=== PATIENT | female | born 1970 | race Caucasian/White ===

== ENCOUNTER 2020-10-10 10:01 | Emergency (ER) | payer OTHER ==
[2020-10-10] MEDS ORDERED: PROTONIX 40 MG IV IV ONE ×2 (10:25→10:36)
[2020-10-10] MEDS ORDERED: GI COCKTAIL 45 ML (Maalox/Lidocaine) PO ONE (10:25)
[2020-10-10] MEDS ORDERED: MAALOX ES 30 ML UNIT DOSE ONE (10:37)
[2020-10-10] MEDS ORDERED: XYLOCAINE HCl Viscous ONE (10:37)
[2020-10-10 10:42] LABS: Absolute Neutrophil Ct (ANC) 5.08 (1.4-6.9); BASOPHIL % 0.2 % (0.0-0.4); Basophil (Absolute #) 0.02 (0-0.4); Eosinophil (Absolute #) 0.09 (0-0.5); Hematocrit 41.9 % (35-47); Hemoglobin 13.7 gm/dl (12.0-16.0); Lymphocyte (Absolute #) 3.13 (1.0-4.6); Lymphocytes % 35.4 % (24.0-44.0); Mean Cell Volume 94.4 fl (78-100); Mean Corpuscular Hemoglobin 30.9 pg (26-32); Mean Corpuscular Hgb Concent. 32.7 g/dl (32-36); Mean Platelet Volume 10.3 fl (7.5-11.0); Monocyte (Absolute #) 0.51 (0.0-1.3); Monocytes % 5.8 % (0.0-12.0); Neutrophil % 57.6 % (36.0-66.0); Platelet Count 312 K/mm3 (150-450); Red Blood Count 4.44 M/mm3 (4.1-5.4); Red Cell Distribution Width 12.4 % (11.5-14.0); White Blood Count 8.8 K/mm3 (4.0-10.5)
[2020-10-10 10:52] LABS: Appearance CLEAR (CLEAR); Bilirubin NEGATIVE (NEGATIVE); Blood NEGATIVE Ery/ul (0-5); Glucose NEGATIVE (NEGATIVE); Hyaline Casts 0-2 /LPF (0-2); Ketones NEGATIVE (NEGATIVE); Leukocyte Esterase NEGATIVE (NEGATIVE); Nitrite NEGATIVE (NEGATIVE); Protein,Urine Dip NEGATIVE (Negative); Specific Gravity 1.005 (1.005-1.025); Urobilinogen NEGATIVE mg/dL (0-1)
--- NOTE | 2020-10-10 10:52 | XRAY ---
Indication: Left abdomen pain 2 months. Comparison: None 2 view abdomen nonacute and nonobstructed with mild diffuse scattered colonic fecal debris, tiny splenic calcified granulomas, and cholecystectomy clips. Solid organs and osseous structures unremarkable. Single PA chest demonstrates normal heart, lungs, and bony thorax with incidental calcified granulomas and right axilla florin dissection. Impression: Mild diffuse fecal stasis. Nonacute one view chest with chronic features.
[2020-10-10 10:55] LABS: RBC NONE SEEN /HPF (0-2); WBC NONE SEEN /HPF (0-5)
[2020-10-10 10:58] LABS: ALBUMIN 4.8 g/dL (3.5-5.0); ALKALINE PHOSPHATASE 75 U/L (38-126); AMYLASE 74 U/L (30-110); ANION GAP 15.4 MEQ/L (5-15); BLOOD UREA NITROGEN 18 mg/dL (7-17); CHLORIDE 102 mmol/L (98-107); Calcium 9.7 mg/dL (8.4-10.2); Carbon Dioxide 27 mmol/L (22-30); Creatinine 1 1.03 mg/dL (0.52-1.04); EST GLOMERULAR FILTRATION RATE > 60.0 ML/MIN; Glucose 90 mg/dL (74-106); LIPASE 81 U/L (23-300); Potassium 4.1 mmol/L (3.5-5.1); SGOT/AST 27 U/L (14-36); SGPT/ALT 14 U/L (0-35); SODIUM 141 mmol/L (137-145); Total Protein 7.9 g/dL (6.3-8.2)
[2020-10-10 11:23] VITALS: BP 119/74; PULSE 63; O2SAT 98
--- NOTE | 2020-10-10 12:02 | ERPHSYRPT ---
- History of Present Illness Time Seen by Provider: 10/10/20 10:17 Historian: patient Exam Limitations: no limitations Patient Subjective Stated Complaint: Abdominal pain Triage Nursing Assessment: Patient ambulated back to ED and transferred self to bed. Patient A+O X 3. Patient's skin pink, warm and dry. Patient complains of left sided abdominal pain for the past couple of months, but the past 4 days the pain has been bad. Patient left work today due to pain. Patient states pain is constant dull with intermittent sharp pain 8/10 to left side. Abdomen soft and round with BS X 4. Patient denies N/V Physician History: 49 years old female with a history of hiatal hernia presented in the ER with chief complaint of 2-month history of intermittent left upper quadrant/epigastric area pain which is progressively worsening for the last 4 days, moderate intensity dull aching burning nature pain, aggravated with activ ity and better with lying down. Patient has been taking ibuprofen with no significant relief. Denies any associated nausea vomiting or diarrhea. Does have history of cholecystectomy and appendectomy. No fever or chills reported. Timing/Duration: day(s), week(s), gradual onset, worse Activities at Onset: activity Quality: aching, burning Abdominal Pain Onset Location: LUQ, epigastric Pain Radiation: no radiation Severity of Pain-Max: moderate Severity of Pain-Current: moderate Modifying Factors: Improves With: lying down, rest. Worsens With: movement, walking Associated Symptoms: heartburn Previous symptoms: same symptoms as today Allergies/Adverse Reactions: naproxen Allergy (Verified 10/10/20 10:15) Hx Influenza Vaccination/Date Given: Yes Hx Pneumococcal Vaccination/Date Given: No Immunizations Up to Date: Yes Travel Risk - International Travel Have you traveled outside of the country in past 3 weeks: No - Coronavirus Screening Are you exhibiting any of the following symptoms?: No Close contact with a COVID-19 positive Pt in past 14-21 Days: No - Vaccine Status Have you recieved a Covid-19 vaccination: No - Review of Systems Constitutional: No Symptoms Eyes: No Symptoms Ears, Nose, & Throat: No Symptoms Respiratory: No Symptoms Cardiac: No Symptoms Abdominal/Gastrointestinal: Abdominal Pain Genitourinary Symptoms: No Symptoms Musculoskeletal: No Symptoms Skin: No Symptoms Neurological: No Symptoms Psychological: No Symptoms Endocrine: No Symptoms - Past Medical History Pertinent Past Medical History: Yes Neurological History: No Pertinent History ENT History: No Pertinent History Cardiac History: Other Respiratory History: No Pertinent History Endocrine Medical History: No Pertinent History Musculoskeletal History: No Pertinent History GI Medical History: No Pertinent History History: No Pertinent History Psycho-Social History: No Pertinent History Female Reproductive Disorders: No Pertinent History Other Medical History: Mitral Valve Prolapse - Past Surgical History Past Surgical History: Yes Neuro Surgical History: No Pertinent History Gastrointestinal: Appendectomy, Cholecystectomy Genitourinary: No Pertinent History Musculoskeletal: No Pertinent History Female Surgical History: No Pertinent History Other Surgical History: Lymph node removal from right arm pit. - Social History Smoking Status: Current every day smoker How long have you smoked: years Exposure to second hand smoke: Yes Drug Use: none Patient Lives Alone: No - Female History Hx Last Menstrual Period: hysterectomy Hx Now: (unkn) - Nursing Vital Signs Nursing Vital Signs: Initial Vital Signs Temperature 98.0 F 10/10/20 10:16 Pulse Rate 68 10/10/20 10:16 Respiratory Rate 18 10/10/20 10:16 Blood Pressure 134/80 10/10/20 10:16 O2 Sat by Pulse Oximetry 99 10/10/20 10:16 Pain Scale Pain Intensity 8 - Physical Exam General Appearance: no apparent distress Eye Exam: eyes nml inspection Ears, Nose, Throat Exam: normal ENT inspection, pharynx normal Neck Exam: normal inspection, supple, full range of motion Respiratory Exam: normal breath sounds, lungs clear Cardiovascular Exam: regular rate/rhythm, normal heart sounds Gastrointestinal/Abdomen Exam: soft, normal bowel sounds, tenderness (Right upper quadrant/epigastric area without guarding or rebound tenderness) Back Exam: normal inspection, normal range of motion, No CVA tenderness Extremity Exam: normal inspection, normal range of motion, pelvis stable Neurologic Exam: alert, oriented x 3, cooperative Skin Exam: normal color SpO2 Interpretation: normal SpO2: 98 O2 Delivery: Room Air Ordered Tests: Active Orders 24 hr Category Date Time Status IV Insertion STAT Care 10/10/20 10:25 Active NPO (ED) STAT Care 10/10/20 10:25 Active OBSTR/ACUTE ABDOMEN SERIES Stat Exams 10/10/20 10:25 Completed AMYLASE Stat Lab 10/10/20 10:20 Completed CBC W DIFF Stat Lab 10/10/20 10:20 Completed CMP Stat Lab 10/10/20 10:20 Completed HCG,QUALITATIVE URINE Stat Lab 10/10/20 10:15 Received LIPASE Stat Lab 10/10/20 10:20 Completed UA W/RFX UR CULTURE Stat Lab 10/10/20 10:20 Completed Medication Summary Discontinued Medications Generic Name Dose Route Start Last Admin Trade Name Kvng PRN Reason Stop Dose Admin Al Hydrox/Mg Hydrox/Simethicone Confirm 10/10/20 10:37 Maalox Es 30 Ml Unit Dose Administered 10/10/20 10:38 Dose 30 ml .ROUTE .STK-MED ONE Lidocaine HCl Confirm 10/10/20 10:37 Xylocaine Hcl Viscous * Administered 10/10/20 10:38 Dose 15 ml .ROUTE .STK-MED ONE Magnesium Hydroxide 45 ml 10/10/20 10:25 10/10/20 10:50 Gi Cocktail 45 Ml (Maalox/Lidocaine) PO 10/10/20 10:26 45 ml STAT ONE Administration Pantoprazole Sodium 40 mg 10/10/20 10:25 10/10/20 10:49 Protonix 40 Mg Iv IV 10/10/20 10:26 40 mg STAT ONE Administration Pantoprazole Sodium Confirm 10/10/20 10:36 Protonix 40 Mg Iv Administered 10/10/20 10:37 Dose 40 mg IV .STK-MED ONE Lab/Rad Data: Laboratory Result Diagrams 10/10/20 10:20 10/10/20 10:20 Laboratory Results 10/10/20 10/10/20 10/10/20 Range/Units 10:20 10:20 10:20 WBC 8.8 (4.0-10.5) K/mm3 RBC 4.44 (4.1-5.4) M/mm3 Hgb 13.7 (12.0-16.0) gm/dl Hct 41.9 (35-47) % MCV 94.4 (78-100) fl MCH 30.9 (26-32) pg MCHC 32.7 (32-36) g/dl RDW 12.4 (11.5-14.0) % Plt Count 312 (150-450) K/mm3 MPV 10.3 (7.5-11.0) fl Gran % 57.6 (36.0-66.0) % Eos # (Auto) 0.09 (0-0.5) Absolute Lymphs (auto) 3.13 (1.0-4.6) Absolute Monos (auto) 0.51 (0.0-1.3) Lymphocytes % 35.4 (24.0-44.0) % Monocytes % 5.8 (0.0-12.0) % Eosinophils % 1.0 (0.00-5.0) % Basophils % 0.2 (0.0-0.4) % Absolute Granulocytes 5.08 (1.4-6.9) Basophils # 0.02 (0-0.4) Sodium 141 (137-145) mmol/L Potassium 4.1 (3.5-5.1) mmol/L Chloride 102 (98-107) mmol/L Carbon Dioxide 27 (22-30) mmol/L Anion Gap 15.4 H (5-15) MEQ/L BUN 18 H (7-17) mg/dL Creatinine 1.03 (0.52-1.04) mg/dL Estimated GFR > 60.0 ML/MIN Glucose 90 (74-106) mg/dL Calcium 9.7 (8.4-10.2) mg/dL Total Bilirubin 0.30 (0.2-1.3) mg/dL AST 27 (14-36) U/L ALT 14 (0-35) U/L Alkaline Phosphatase 75 (38-126) U/L Serum Total Protein 7.9 (6.3-8.2) g/dL Albumin 4.8 (3.5-5.0) g/dL Amylase 74 (30-110) U/L Lipase 81 (23-300) U/L Urine Color STRAW (YELLOW) Urine Appearance CLEAR (CLEAR) Urine pH 6.0 (5-6) Ur Specific [place] 1.005 (1.005-1.025) Urine Protein NEGATIVE (Negative) Urine Ketones NEGATIVE (NEGATIVE) Urine Blood NEGATIVE (0-5) Fritz/ul Urine Nitrite NEGATIVE (NEGATIVE) Urine Bilirubin NEGATIVE (NEGATIVE) Urine Urobilinogen NEGATIVE (0-1) mg/dL Ur Leukocyte Esterase NEGATIVE (NEGATIVE) Urine WBC (Auto) NONE SEEN (0-5) /HPF Urine RBC (Auto) NONE SEEN (0-2) /HPF U Hyaline Cast (Auto) 0-2 (0-2) /LPF U Epithel Cells (Auto) NONE (FEW) /HPF Urine Bacteria (Auto) NONE (NEGATIVE) /HPF Urine Culture Reflexed NO (NO) Urine Glucose NEGATIVE (NEGATIVE) mg/dL - Progress Progress: improved, re-examined Progress Note: 10/10/20 11:59 She is given Protonix and GI cocktail, on reevaluation feeling better. She has grossly unremarkable work-up in the ER. X-rays showed moderate fecal load but no other acute findings. I believe her symptoms are GERD related and she is also taking ibuprofen which is making it worse. She is advised to take Tylenol and no ibuprofen. I would start her on Protonix and MiraLAX for constipation. Do not think she needs CT imaging or any other work-up and is stable for discharge with outpatient follow-up as scheduled tomorrow. Discussed signs symptoms of worsening needing return to ER which she seemed understanding. Counseled pt/family regarding: lab results, diagnosis, need for follow-up, rad results - Departure Departure Disposition: Home Clinical Impression: GERD without esophagitis Constipation Qualifiers: Constipation type: unspecified constipation type Qualified Code(s): K59.00 - Constipation, unspecified Condition: Stable Critical Care Time: No Referrals: TYRONE COVINGTON MD [Primary Care Provider] - (Tomorrow as scheduled) Instructions: Acid Reflux and GERD in Adults (DC), Acute Abdomen (Belly Pain), Acute Abdomen (Belly Pain), Adult (DC) Additional Instructions: Drink plenty of fluids. Take Tylenol as needed. Do not take ibuprofen. Take daily MiraLAX and stool softener. Follow-up with primary care for reevaluation tomorrow as scheduled. Return to ER for worsening pain or if develop vomiting fever chills etc. Prescriptions: Polyethylene Glycol 3350 17 gm [Miralax Powder 17GM PACKET] 17 gm PO DAILY 30 Days #30 packet PANTOPRAZOLE 40 mg Tablet [Protonix 40MG Tablet] 40 mg PO QAM 30 Days #30 tab
== END 2020-10-10 12:08 | disposition home or self-care (01) ==
LOC: ED 10:01
DX: K21.9 Gastro-esophageal reflux disease without esophagitis (principal); K59.00 Constipation, unspecified
CPT/HCPCS: 36000; 36415; 74022; 80053; 81001; 82150; 83690; 85025; 96374; 99284; A9270-GY